=== PATIENT | male | born 1940 | race Asian ===

== ENCOUNTER 2023-12-19 11:49 | Emergency (ER) | payer MEDICARE, OTHER ==
[~2023-12-19] VITALS: Ht 172.7 cm; Wt 74.8 kg
[2023-12-19 11:50] VITALS: BP 126/79; PULSE 162; RESP 30; O2SAT 88; O2SAT 95
[2023-12-19] MEDS ORDERED: INTUBATION KIT MC ONE (12:04)
[2023-12-19] MEDS ORDERED: DILTIAZEM 25 MG/5 ML VIAL IVP ONE (12:06)
[2023-12-19 13:00] LABS: BLOOD GAS PH 7.474 (7.35-7.45)
[2023-12-19 13:01] LABS: BLOOD GAS BASE EXCESS 1.7 mmol/L (-2.0-2.0); BLOOD GAS HCO3 24.8 mmol/L (22-26); BLOOD GAS O2 SAT% 92.6 % (92.0-98.5); BLOOD GAS PCO2 34.5 mmHg (35-45); BLOOD GAS PO2 66.8 mmHg (75-100)
[2023-12-19] MEDS: NOREPINEPHRINE 4 MG in DEXTROSE 5% 250 ML IV ONE (14:58)
[2023-12-19] MEDS: NACL 0.9% 2,000 ML IV ONE (14:58)
[2023-12-19] MEDS: DOPamine 400 MG/D5W PREMIX 250 ML IV PRN (14:58)
[2023-12-19] MEDS: ETOMIDATE 20 MG/10 ML VIAL IVP ONE (14:58)
[2023-12-19] MEDS: ATROPINE 1 MG/10 ML SYR IVP ONE (15:07)
== END 2023-12-19 12:56 ==
LOC: MED 11:49
DX: I46.9 Cardiac arrest, cause unspecified (principal); R57.0 Cardiogenic shock; J96.01 Acute respiratory failure with hypoxia; I48.20 Chronic atrial fibrillation, unspecified; I63.9 Cerebral infarction, unspecified
CPT/HCPCS: 71045; 92960; 96365; 96375; 99291; G0500; J7030; Q0092; J3490